=== PATIENT | female | born 2000 | race Caucasian/White ===

== ENCOUNTER 2022-01-23 12:54 | Emergency (ER) | payer SELFPAY ==
[~2022-01-23] VITALS: Ht 165.1 cm; Wt 84.1 kg
[2022-01-23 12:59] VITALS: BP 151/86
--- NOTE | 2022-01-23 13:16 | NUR ---
PATIENT AMBULATE TO ROOM 7. PT INTO GOWN AND URINE OBTAINED
--- NOTE | 2022-01-23 13:17 | NUR ---
21YR OLD FEMALE BIB SELF C/O ABD PAIN VOMITING DIARRHEA X5 DAYS. PAIN LEVEL 8/10. CRAMP PAIN IN RLQ. PT A&OX4 . DENIES CP OR SOB. PT IN GOWN ON BED SIDE RAILS UP X1. BED AT LOWEST POSITION NKDA GALLSTONE SURGERY
--- NOTE | 2022-01-23 13:23 | NUR ---
DR. OROPEZA AT PT BEDSIDE FOR FURTHER EVALUATION.
--- NOTE | 2022-01-23 13:23 | NUR ---
ER AT BEDSIDE
[2022-01-23] MEDS ORDERED: KETOROLAC 15 MG/ML VIAL IVP ONE (13:25)
[2022-01-23] MEDS ORDERED: ONDANSETRON 4 MG/2 ML VIAL IVP ONE (13:25)
--- NOTE | 2022-01-23 13:25 | NUR ---
21 Y/O FEMALE C/O ABD PAIN DESCRIBES CRAMPING X 5 DAYS RADIATES TO RLQ X 2 DAYS. PT STATES +N/V/D. ABD IS SOFT, ROUND, LARGE, BOWEL SOUNDS PRESENT X4, NO TENDERNESS ON PALPATION. DENIES FEVER/CHILLS. PMH: CHOLECYSTECTOMY X1YR NKA
--- NOTE | 2022-01-23 13:40 | NUR ---
20G IV CATH PLACED L AC
--- NOTE | 2022-01-23 13:42 | NUR ---
LABS OBTAINED AND SENT OFF WITH ADMISSION SPECIALIST
[2022-01-23 13:54] LABS: BASOPHILS % (AUTO) 0.5 % (0.0-2.0); EOSINOPHILS # (AUTO) 0.3 K/uL (0-0.4); HEMATOCRIT 36.8 % (36-48); HEMOGLOBIN 12.1 g/dL (12.0-16.0); LYMPHOCYTES # (AUTO) 1.7 K/uL (2.5-16.5); LYMPHOCYTES % (AUTO) 22.4 % (20.5-51.1); MEAN CORPUSCULAR HEMOGLOBIN 25 pg (27-31); MEAN CORPUSCULAR HGB CONC 33 g/dL (33-37); MEAN CORPUSCULAR VOLUME 77.2 fL (80-94); MONOCYTES # (AUTO) 0.7 K/uL (0.8-1.0); MONOCYTES % (AUTO) 8.7 % (1.7-9.3); NEUTROPHILS # (AUTO) 4.9 K/uL (1.8-7.7); NEUTROPHILS % (AUTO) 64.4 % (42.2-75.2); PLATELET COUNT (AUTO) 410 K/uL (140-450); RED BLOOD CELL COUNT(AUTO) 4.77 MIL/uL (4.20-5.40); RED CELL DISTRIBUTION WIDTH 14.7 % (11.6-13.7); WHITE BLOOD COUNT (AUTO) 7.6 K/uL (4.8-10.8)
[2022-01-23 14:13] LABS: ALBUMIN 3.4 g/dL (3.4-5.0); ANION GAP 9.6 (8-16); CARBON DIOXIDE 27.1 mmol/L (21-32); CREATININE 0.6 mg/dL (0.6-1.3); POTASSIUM 3.7 mmol/L (3.5-5.1); TOTAL BILIRUBIN 0.4 mg/dL (0.0-1.0)
--- NOTE | 2022-01-23 14:29 | NUR ---
PT SLEEPING . RESP EVEN AND UNLABORED. SIDE RAIL UP X1
--- NOTE | 2022-01-23 15:03 | NUR ---
PT TO CT
--- NOTE | 2022-01-23 15:05 | NUR ---
PT BACK FROM CT
--- NOTE | 2022-01-23 15:42 | NUR ---
PENDING CT RESULTS
--- NOTE | 2022-01-23 16:28 | NUR ---
DR OROPEZA AT BEDSIDE
--- NOTE | 2022-01-23 17:05 | NUR ---
PELVIC ULTRASOUND TO BE DONE
--- NOTE | 2022-01-23 18:11 | NUR ---
ULTRASOUND AT BEDSIDE
--- NOTE | 2022-01-23 18:48 | NUR ---
PENDING ULTRASOUND RESULTS
[2022-01-23] MEDS ORDERED: IBUP-2213 PO (19:53)
[2022-01-23 20:37] VITALS: BP 122/74
--- NOTE | 2022-01-23 20:37 | NUR ---
Patient discharged with v/s stable. Written and verbal after care instructions given and explained. Patient alert, oriented and verbalized understanding of instructions. Ambulatory with steady gait. All questions addressed prior to discharge. ID band removed. Patient advised to follow up with PMD. Rx of IBUPROFEN given. Opportunity to ask questions provided and answered.
--- NOTE | 2022-01-23 20:53 | NUR ---
The patient's care was reviewed and supervised by Miranda Kwan RN.
== END 2022-01-23 20:37 | disposition home or self-care (01) ==
LOC: MED 12:54
DX: N83.209 Unspecified ovarian cyst, unspecified side (principal); Z79.899 Other long term (current) drug therapy; Z90.49 Acquired absence of other specified parts of digestive tract
CPT/HCPCS: 36415; 74177; 76856; 80053; 81002; 81025; 85025; 93976; 96374; 96375; 99285; J1885; J2405; Q9967